=== PATIENT | female | born 1995 | race Caucasian/White ===

== ENCOUNTER → 2018-08-28 13:30 | Outpatient (CLI) | payer SELFPAY | PROVIDERS: Visit Provider Obstetrics & Gynecology | DX: Z36.85 Encounter for antenatal screening for Streptococcus B (principal) | CPT/HCPCS: 87081 ==

== ENCOUNTER 2018-09-30 03:20 | Outpatient (CLI) | payer SELFPAY ==
[2018-09-30 04:02] VITALS: BMI 30.7
[2018-09-30 04:28] LABS: Bacteria 0 SEEN /hpf (None Seen); Mucous, Urine 0 SEEN /hpf (<or=2+)
[2018-09-30 04:41] LABS: Color, Urine Straw (Yellow); Glucose, Dipstick Normal (Normal); Ketone-Dipstick Negative (Negative); Leukocyte Esterase-Dipstick 25 /ul (Negative); Nitrite-Dipstick Negative (Negative); Occult Blood-Urine 250 /ul (Negative); Protein-Dipstick Negative (Negative); Specific Gravity, Urine 1.015 (1.002-1.030); Urine Bilirubin Dipstick Negative (Negative); Urine Clarity Clear (Clear); Urine Urobilinogen Normal (Normal)
[2018-09-30 04:49] LABS: White Blood Cells 0-5 SEEN /hpf (0-5)
[2018-09-30 04:51] LABS: Red Blood Cells-Urine 5-10 SEEN /hpf (0-5); Squamous Epithelial Cells - UA 0-5 SEEN /hpf (5-10)
--- NOTE | 2018-09-30 12:04 | OB.TRI.HP_ITS ---
History of Present Illness Date of Service: 09/30/18 Was patient seen by the physician?: Yes Reason For Visit: R/O LABOR Date of Service: 09/30/18 Final MERVIN: 09/26/18 Final MERVIN Source: US >20 weeks Gestational age: 40 Weeks and 4 Days History of Present Illness: [age]yo [id number] female at 40 3/7 wk with h/o prior C/S for breech. Hoping for . presents with irregular UCs. Able to sleep through these at observation. Allergies No Known Allergies Allergy (Verified 09/30/18 04:04) Laboratory Studies: Laboratory Tests 09/30/18 Range/Units 04:00 Urine Color Straw (Yellow) Urine Clarity Clear (Clear) Urine pH 7.0 (5.0 - 8.0) Ur Specific [place] 1.015 (1.002-1.030) Urine Protein Negative (Negative) mg/dl Urine Glucose (UA) Normal (Normal) mg/dl Urine Ketones Negative (Negative) mg/dl Urine Occult Blood 250 H (Negative) /ul Urine Nitrite Negative (Negative) Urine Bilirubin Negative (Negative) mg/dL Urine Urobilinogen Normal (Normal) mg/dl Ur Leukocyte Esterase 25 H (Negative) /ul Urine RBC 5-10 SEEN (0-5) /hpf Urine WBC 0-5 SEEN (0-5) /hpf Ur Squamous Epith Cells 0-5 SEEN (5-10) /hpf Urine Bacteria 0 SEEN (None Seen) /hpf Urine Mucus 0 SEEN (<or=2+) /hpf Physical Exam General: Alert, Oriented x3, Cooperative, No apparent distress HEENT: Atraumatic, EOMI Neurological: Cranial nerves II-XII grossly intact Presentation: Cephalic Cervix Dilation (cm): 1 - cervix thick and posterior, high. Station: -3 Effacement (%): 0 NST - FHR Rate Baby A Baseline: 110-120s avg variability accels to 140s sleep cycles Variability:: Moderate Accelerations:: 15 x 15 Decelerations:: None NST Reactive:: Yes, Appropriate for gestational age FHR Category:: Category I Uterine Activity:: irregular UCs Impression/Plan 40 3/7 wk prior C/S planning False labor NST reassuring RTO for next ofc visit as planned. Plan for induction if 41 wk. UNFAVORABLE cervix for induction at present.
== END 2018-09-30 08:20 | disposition home or self-care (01) ==
LOC: WPOUT 03:49 → WP 03:49
PROVIDERS: Visit Provider Obstetrics & Gynecology
DX: O47.1 False labor at or after 37 completed weeks of gestation (principal); O34.211 Maternal care for low transverse scar from previous cesarean delivery; Z3A.40 40 weeks gestation of pregnancy
CPT/HCPCS: 59025; 59050; 81001; 99218; G0378

== ENCOUNTER 2018-10-05 07:00 | Inpatient (IN) | payer SELFPAY ==
[2018-10-05 08:55] VITALS: BMI 30.7
[2018-10-05] MEDS: Lactated Ringers 1,000 ML 50 ML IV ×3 (15:25→23:30)
[2018-10-05 15:40] LABS: Absolute Lymphocyte Count 1.83 X10^3/ul (0.83-4.51); Absolute Neutrophil Count 6.6 X10^3/uL (2.0-7.7); Basophil# 0.01 X10^3/uL; Basophil% 0.1 % (0-1); Eosinophil# 0.03 X10^3/uL; Eosinophils% 0.3 % (0-5); Hematocrit 32.2 % (37-47); Hemoglobin 10.6 g/dl (12.0-15.0); Lymphocyte # 1.83 X10^3/ul (4.0); Lymphocyte % 20.6 % (19-41); Mean Corp Hgb Conc 32.9 g/gl (32-36); Mean Corpuscular Hgb 28.5 pg (27.0-32.0); Mean Corpuscular Volume 86.6 fL (81-99); Mean Platelet Vol. 9.7 fl (6.2-12.0); Monocyte# 0.37 X10^3/uL; Monocyte% 4.2 % (0-10); Neutrophil # 6.61 X10^3/uL (2.7-7.7); Neutrophil % 74.4 % (47-70); Platelet Count 201 K/mm3 (150-450); Red Blood Count 3.72 M/mm3 (4.2-5.4); White Blood Count 8.9 K/mm3 (4.4-11.0)
[2018-10-05 15:41] LABS: POSITIVE COUNT NO; POSITIVE DIFFERENTIAL NO; POSITIVE MORPHOLOGY NO
[2018-10-05] MEDS: Oxytocin 30 units/NS 500 ml 30 UNITS/500 ML IV.SOLN IV (17:50)
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
--- NOTE | 2018-10-05 21:35 | PCM.PN.BLA ---
Progress Note LABOR PROGRESS NOTE. 41 2/7 wk EGA induction Strong UCs noted per RN notes. AVSS Pitocin at 4 mIU/min EFM 120s with avg variability Some earlies noted . Category I tracing. UCs q 2-3 mins and adequate mVUs by IUPC Cx 3.5/90/-2 at 2106 per RN check.
[2018-10-06] VITALS (18 sets, daily range): BP systolic 92–124; BP diastolic 50–81; PULSE 61–110; RESP 14–22; TEMP 36.3–37.8; O2SAT 94–100
[2018-10-06] MEDS: 0.9% Saline Lock 10 ML Syringe IV (00:28)
[2018-10-06] MEDS: Ondansetron 4 MG/2 ML Vial IV (00:28)
[2018-10-06] MEDS: fentaNYL-bupivacaine (epidural) 100 ML BAG EPIDURAL (00:44)
[2018-10-06] MEDS: Lactated Ringers 1,000 ML 50 ML IV (02:53)
[2018-10-06] MEDS: Amnioinfusion- 0.9% NS 1,000 ML IV.SOLN. 125 ML INTRA-UTER (03:36)
--- NOTE | 2018-10-06 03:44 | PCM.PN.BLA ---
Progress Note LABOR NOTE Epidural placed, comfortable w/ epidural AVSS pitocin at 4 mIU/min EFM 130-140 s avg variability. Early decels then variables with early timing. UCs q 3-4 mins Exam in hands and knees with thick anterior lip. Then returned to supine , with UC cervix approx 8 cm. -1 Scalp lead placed. Scalp stim noted., inc variability noted in FHR 130-140s A/P 41 3/7 wk induction. Amnioinfusion ordered. 300 cc bolus then 125 cc/hr if good fluid return. Position hanges to facilitate rotation and descent.
[2018-10-06] MEDS: CHLORHEXIDINE GLUC 2% CLOTH 1 EACH TOWELETTE TOPICAL (04:40)
--- NOTE | 2018-10-06 04:49 | PN_ITS ---
Progress Note LABOR PROGRESS NOTE Comfortable w/ epidural AVSS Pitocin off Amnioinfusion off O2 on. IFM: recurrent lates noted, and intermittent variables CX: remains 8 cm. A/P: 41 2/7 wk induction postdates . Recurrent lates. Prior recurrent variables. C/S for nonreassuring FHT LINDA. 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 Proceed to C/S
[2018-10-06] MEDS: Sodium Citrate/Citric Acid 30 ML UDC PO (04:50)
[2018-10-06] MEDS: Cefazolin 2 GM in 0.9% Normal Saline 100 ML IV (04:54)
[2018-10-06] MEDS: Oxytocin 30 units/NS 500 ml 30 UNITS/500 ML IV.SOLN 167 UNITS IV (05:17)
--- NOTE | 2018-10-06 05:38 | PCM.OPRPT ---
Report of Operation Date of Procedure: 10/06/18 Pre-Operative Diagnosis: 41 2/7 wk postdates induction Post-Operative Diagnosis: Same and nonreassuring FHT (repetitive lates, deep variables) Surgery/Procedure Performed:: Repeat C/S cider maker: Nicole Gilbert Type of Anesthesia:: General Anesthesiologist: Nubia Ngo Specimen's removed: Placenta Drains: Rodriguez clear yellow urine Delivery Classification: LINDA Final MERVIN: 09/27/18 Gestational age: 41 Weeks and 2 Days doctor who attended delivery (if requested by OB): Yudy Soares Indications: 41 2/7 wk induction postdates, Nonreassuring FHT repetitive lates and deep variables. Indications for : Nonreassuring Status Description of Procedure: Findings: At amniotomy, clear fluid was noted. Uv viable male in vertex presentation. Deeply wedged into maternal pelvis Significant caput, moulding. Apgars 8/8, There was a normal appearing uterus, fallopian tubes and ovaries bilaterally. There was no window noted at the uterus. There were minimal filmy adhesions between the bladder and lower uterine segment. PATH: Routine cord blood for typing collected. Routine cord gases were sent. Narrative account: After the risks, benefits and alternatives of the procedure were reviewed with the patient, informed consent was obtained. The patient was taken to the Operating room with an IV running, rodriguez catheter in place and epidural catheter in place. She was positioned on the table to dorsal supine position with leftward displacement of the uterus, and prepped and draped in the usual sterile fashion. The epidural was dosed to surgical levels, but remained spotty on the R side and inadequate on the L side. Due to this, general anesthesia was administered. Once the general was administered, a Pfannenstiel skin incision was created using the knife (through the prior skin incision scar). The incision was carried down to the rectus fascia using the knife. The fascia was nicked in the midline. The fascial incision was extended bilaterally using curved Villalobos scissors. The superior aspect of the fascial incision was grasped with Desmond clamps and tented up and the underlying rectus abdominal muscles were dissected free. In a similar manner, the inferior aspect of the facial incision was grasped with Desmond clamps tented up and the underlying rectus abdominal muscles were dissected free. The rectus abdominis muscles were in the midline and the peritoneum was identified and entered by blunt dissection high in the incision. The peritoneum was stretched laterally and a bladder blade was inserted. A bladder flap was created along the lower uterine segment with Metzenbaum scissors . The uterine incision was then created using Metzenbaum scissors. The operators fingertips were used to extend the uterine incision by blunt dissection in a caudad- cephalad orientation . Clear fluid was noted at amniotomy. The vertex was then delivered atraumatically through the incision. The OP and nares were bulb suctioned on the abdomen. The shoulders delivered easily . The cord clamped x two and cut. And the infant was handed off to the nurse awaiting delivery. The baby had a very weak cry at handoff. The placenta was then delivered. The uterus was exteriorized and cleared of clots and debris . The uterine incision was repaired with 1 Vicryl in a running locked fashion. A second imbricating layer was then placed, using 1 Monocryl in running nonlocked fashion. Bovie cautery was used to treat any bleeding areas . Excellent hemostasis was noted. At this point the uterus was returned to the abdominal cavity. The pelvis and abdomen were copiously irrigated. The gutters were cleared of clots and debris and the incision at the uterus was inspected. Shavon was dusted over the incision and along a vertical window at the serosal edge of the uterus extending vertically from the L uterine angle. Excellent hemostasis was noted. The peritoneal edges and rectus abdominis muscles were reapproximated in the midline with a series of figure of eight stitches of 1 Vicryl. Shavon was applied to this layer. Excellent hemostasis was noted at the subfascial space Shavon was dusted over this layer as well. The fascia was closed in a running nonlocked fashion with a Stratofix. The Subcutaneous fatty tissue was dry. Shavon was liberally dusted at this layer to prevent seroma formation. This layer was then reapproximated in a single layer closure of running 3-0 Vicryl to eliminate space. The skin edges were closed in a Subcuticular stitch of 4-0 Monocryl. The incision was cleansed. Cavilon, and Mepilex dressing were applied to the skin . The patient was then transferred to the recovery room bed in stable condition after tolerating the procedure well. Sponge, lap, needle and instrument counts correct times two. Medications given preop and intraoperatively included: Ancef 2 gm given food production machine operator to the operating room. The patient also received Pitocin given IV after cord clamp, and Toradol 30 mg IV times one. For a complete listing of medications given preop and intraoperatively, please see the anesthesia record. Amniotic Membrane Rupture Type: Artificial Amniotic Fluid Description: Clear Placenta Disposition: [facility] Specimen(s) sent to pathology: cord gases Drain: Rodriguez to straight drain Fluids Replaced: LR Cord Entanglement: None Cord Vessel Description: 3 Vessels Esitmated Blood Loss (ml): 600 Gender: Male Delayed cord clamping: No Pre-op Antibiotic Given: Ancef 2 grams IV x1 Complications: None - Admit VTE Documentation VTE Present on Admission: No VTE Mechan Device Prophylaxis: SCD's VTE Pharm Prophylaxis ordered?: Yes
--- NOTE | 2018-10-06 05:53 | PCM.DCCSEC ---
Discharge Diet: No Restrictions Discharge Activity: May Shower, May Take a Tub Bath Return to work on:: 11/20/18 May resume sexual activity in: 4-6 weeks Lifting Restrictions: 20 pounds Additional Activity Instructions:: Nothing in the vagina for 4-6 weeks. You may return to work/school in 6 weeks. Change Dressing in (Days):: 7 Remove Dressing in (days):: 7 Cleanse incision/area with: Soap & Water, Keep Dressing Clean & Dry Additional Instructions: If you experience any of the following, contact your healthcare provider. Bleeding that soaks a pad every hour for 2 hours Fever 100.4 or higher Unrelieved incision or abdominal pain Swelling, redness, discharge or bleeding from your incision Problems urinating (including inability to urinate or burning while urinating). Visual changes Severe headache Flu-like symptoms Pain or redness in one of both of your breasts Pain, warmth, tenderness or swelling in your legs, especially the calf area Frequent nausea and vomiting Symptoms of depression or anxiety If you experience any of the following, call 911 or go to the nearest Emergency Room. Chest pain Problems breathing Seizure activity Partial or complete paralysis of a body part, slurred speech, weakness or drooping of the face, or a sudden inability to walk or hold your balance Allergies/Adverse Reactions: Allergies No Known Allergies Allergy (Verified 10/05/18 08:53) Medications to take at Discharge Elena [place]/Linoleic/Gamoleni [Evening [place] 1,000 mg Sftg] 3,000 mg PO QHS 09/30/18 Vits [Prenatabs FA] 3 tablet PO DAILY 09/30/18 Docusate Sodium [Colace] 100 mg PO BID #30 capsule 10/06/18 Naproxen [Naprosyn] 250 - 500 mg PO TID PRN PRN #30 tablet 10/06/18 Oxycodone [Oxyir] 5 - 10 mg PO Q6H PRN PRN 7 Days #20 tablet 10/06/18 Polyethylene Glycol 3350 [Miralax] 17 gm PO DAILY PRN #14 packet 10/06/18 The following prescriptions were given: Oxycodone [Oxyir] 5 - 10 mg PO Q6H PRN PRN 7 Days #20 tablet PRN Reason: Mod-Severe Pain (-10/10) Naproxen [Naprosyn] 250 - 500 mg PO TID PRN PRN #30 tablet PRN Reason: Mild-Mod Pain (1-09/15) Polyethylene Glycol 3350 [Miralax] 17 gm PO DAILY PRN #14 packet PRN Reason: Constipation Docusate Sodium [Colace] 100 mg PO BID #30 capsule Follow-Up: Call to make an appointment with your doctor for an incision check in 1-2 weeks. You will also need a 6 week post- follow up appointment. Test results from this visit will be discussed in further detail at your follow-up appointment, if applicable. Please Follow Up With: Jeana Conway MD - [phone] When: Call to make an appointment for an incision check in 2 weeks. Primary Care Physician: Bryan Mcleod [Primary Care Provider] - Proposed Discharge Date: 10/09/18
--- NOTE | 2018-10-06 05:56 | DCINST_ITS ---
Discharge Diet: No Restrictions Discharge Activity: May Shower, May Take a Tub Bath Return to work on:: 11/20/18 May resume sexual activity in: 4-6 weeks Lifting Restrictions: 20 pounds Additional Activity Instructions:: Nothing in the vagina for 4-6 weeks. You may return to work/school in 6 weeks. Change Dressing in (Days):: 7 Remove Dressing in (days):: 7 Cleanse incision/area with: Soap & Water, Keep Dressing Clean & Dry Additional Instructions: If you experience any of the following, contact your healthcare provider. * Bleeding that soaks a pad every hour for 2 hours * Fever 100.4 or higher * Unrelieved incision or abdominal pain * Swelling, redness, discharge or bleeding from your incision * Problems urinating (including inability to urinate or burning while urinating). * Visual changes * Severe headache * Flu-like symptoms * Pain or redness in one of both of your breasts * Pain, warmth, tenderness or swelling in your legs, especially the calf area * Frequent nausea and vomiting * Symptoms of depression or anxiety If you experience any of the following, call 911 or go to the nearest Emergency Room. * Chest pain * Problems breathing * Seizure activity * Partial or complete paralysis of a body part, slurred speech, weakness or drooping of the face, or a sudden inability to walk or hold your balance Allergies/Adverse Reactions: Allergies No Known Allergies Allergy (Verified 10/05/18 08:53) Medications to take at Discharge Elena [place]/Linoleic/Gamoleni [Evening [place] 1,000 mg Sftg] 3,000 mg PO QHS 09/30/18 Vits [Prenatabs FA] 3 tablet PO DAILY 09/30/18 Docusate Sodium [Colace] 100 mg PO BID #30 capsule 10/06/18 Naproxen [Naprosyn] 250 - 500 mg PO TID PRN PRN #30 tablet 10/06/18 Oxycodone [Oxyir] 5 - 10 mg PO Q6H PRN PRN 7 Days #20 tablet 10/06/18 Polyethylene Glycol 3350 [Miralax] 17 gm PO DAILY PRN #14 packet 10/06/18 The following prescriptions were given: Oxycodone [Oxyir] 5 - 10 mg PO Q6H PRN PRN 7 Days #20 tablet PRN Reason: Mod-Severe Pain (4-02/15) Naproxen [Naprosyn] 250 - 500 mg PO TID PRN PRN #30 tablet PRN Reason: Mild-Mod Pain (1-09/15) Polyethylene Glycol 3350 [Miralax] 17 gm PO DAILY PRN #14 packet PRN Reason: Constipation Docusate Sodium [Colace] 100 mg PO BID #30 capsule Follow-Up: Call to make an appointment with your doctor for an incision check in 1-2 weeks. You will also need a 6 week post- follow up appointment. Test results from this visit will be discussed in further detail at your follow- up appointment, if applicable. Please Follow Up With: Jeana Conway MD - [phone] When: Call to make an appointment for an incision check in 2 weeks. Primary Care Physician: Bryan Mcleod [Primary Care Provider] - Proposed Discharge Date: 10/09/18
[2018-10-06] MEDS: Lactated Ringers 1,000 ML 100 ML IV ×2 (06:00→16:37)
[2018-10-06] MEDS: Ketorolac 30 MG/ML Syringe IV ×4 (06:50→23:33)
[2018-10-06] MEDS: Acetaminophen 500 MG Tablet 1000 MG PO ×2 (09:20→16:36)
[2018-10-06] MEDS: HYDROmorphone 1 MG/ML Syringe IV ×2 (17:54→21:18)
[2018-10-07] MEDS: Acetaminophen 500 MG Tablet 1000 MG PO ×2 (02:53→17:07)
[2018-10-07 04:57] VITALS: BP 109/86; PULSE 83; RESP 18; TEMP 36
[2018-10-07] MEDS: Ketorolac 30 MG/ML Syringe IV ×4 (05:18→23:53)
[2018-10-07] MEDS: 0.9% Saline Lock 10 ML Syringe IV ×4 (05:18→23:53)
[2018-10-07] MEDS: Enoxaparin 40 MG/0.4 ML Syringe SC (05:19)
[2018-10-07 05:49] LABS: Hematocrit 30.4 % (37-47); Hemoglobin 10.1 g/dl (12.0-15.0); Mean Corp Hgb Conc 33.2 g/gl (32-36); Mean Corpuscular Hgb 28.8 pg (27.0-32.0); Mean Corpuscular Volume 86.6 fL (81-99); Mean Platelet Vol. 9.8 fl (6.2-12.0); Platelet Count 176 K/mm3 (150-450); RBC Distribution Width CV 14.1 % (11.6-14.6); RBC Distribution Width SD 43.1 fl (35.1-43.9); Red Blood Count 3.51 M/mm3 (4.2-5.4); White Blood Count 15.6 K/mm3 (4.4-11.0)
[2018-10-07 05:52] LABS: Scan Indicated on CBC? Y/N NO
[2018-10-07 08:00] VITALS: BP 117/72; PULSE 62; RESP 18; TEMP 36.7; O2SAT 96
[2018-10-07] MEDS: Senna/Docusate Sodium 1 Tablet PO (08:05)
[2018-10-07] MEDS: oxyCODONE 5 MG Tablet PO (08:05)
--- NOTE | 2018-10-07 10:22 | PCM.PN.OB ---
Subjective: Patient without complaints. Tolerating diet well. Denies flatus. Minimal vaginal bleeding reported. - Physical Exam Vital Signs Temp Pulse Resp BP Pulse Ox 98.1 F 62 18 117/72 96 10/07/18 08:00 10/07/18 08:00 10/07/18 08:00 10/07/18 08:00 10/07/18 08:00 Oxygen Delivery Method Room Air Weight: 179 lb 3.773 oz Body Mass Index (BMI) 30.7 Intake and Output for Last 24 Hours 10/05/18 10/06/18 10/07/18 23:59 23:59 23:59 Intake Total 4453 / 4453 325 / 325 Output Total 3050 / 3050 1100 / 1100 Balance 1403 / 1403 -775 / -775 Laboratory Tests Past 24 Hrs 10/07/18 05:30 WBC 15.6 H RBC 3.51 L Hgb 10.1 L Hct 30.4 L MCV 86.6 MCH 28.8 MCHC 33.2 RDW 14.1 RDW Differential 43.1 Plt Count 176 MPV 9.8 Wound is clean and dry covered with Mepilex bandage. Good urine output. Hemoglobin okay. Medical Necessity - Tobacco Use Smoking Status: Never smoker Assessment/Plan Doing well postoperative day #1 status post repeat . Continuing present care.
--- NOTE | 2018-10-07 12:30 | NURSING ---
Report given to Shaye Lunsford RN. She will assume care of patient at this time.
[2018-10-07 14:28] VITALS: BP 105/56; PULSE 76; RESP 16; TEMP 36.7
[2018-10-07 20:17] VITALS: BP 116/72; PULSE 75; RESP 18; TEMP 36.9
[2018-10-08 02:14] VITALS: BP 109/70; PULSE 88; RESP 16; TEMP 36.4
[2018-10-08] MEDS: Enoxaparin 40 MG/0.4 ML Syringe SC (05:44)
[2018-10-08 07:51] VITALS: BP 119/84; PULSE 64; RESP 18; TEMP 36.7; O2SAT 96
[2018-10-08] MEDS: oxyCODONE 5 MG Tablet PO (08:12)
--- NOTE | 2018-10-08 09:52 | PCM.PN.OB ---
Subjective: Patient without complaints. Tolerating diet well. Pain well controlled. Ready to go home. - Physical Exam Vital Signs Temp Pulse Resp BP Pulse Ox 98.1 F 64 18 119/84 H 96 10/08/18 07:51 10/08/18 07:51 10/08/18 07:51 10/08/18 07:51 10/08/18 07:51 Oxygen Delivery Method Room Air Weight: 179 lb 3.773 oz Body Mass Index (BMI) 30.7 Intake and Output for Last 24 Hours 10/06/18 10/07/18 10/08/18 23:59 23:59 23:59 Intake Total 4453 / 4453 325 / 325 Output Total 3050 / 3050 1600 / 1600 Balance 1403 / 1403 -1275 / -1275 Medical Necessity - Tobacco Use Smoking Status: Never smoker Assessment/Plan Doing well postoperative day #2 status post section. Will release to home with routine instructions.
--- NOTE | 2018-10-08 09:57 | PCM.DC.BLA ---
Discharge Summary Date of Admission: 10/05/18 Date of Discharge: 10/08/18 Summary: Procedure: Repeat HPI: Uneventful care. PE: Unremarkable. Hospital Course: The patient is a 23 year old who presented to [facility] for repeat . Postoperatively she did well demonstrating a stable HGB on POD 1 and bowel fxn by POD 2 at which time it was felt she was ready for discharge. Homegoing Instruction: She was instructed not to drive for several days or if using narcotic pain medication, not to put anything in the vagina for 4 weeks, not to lift >25 lbs for 6 weeks and to call the office for an appointment in 2 weeks and 6 weeks. Discharge Medications: She was given a prescription for Oxycodone and Colace and also plans to use Aleve or Motrin or Tylenol at home as needed for pain and constipation. - Physical Exam Vital Signs Temp Pulse Resp BP Pulse Ox 98.1 F 64 18 119/84 H 96 10/08/18 07:51 10/08/18 07:51 10/08/18 07:51 10/08/18 07:51 10/08/18 07:51 Oxygen Delivery Method Room Air Weight: 179 lb 3.773 oz Body Mass Index (BMI) 30.7 Intake and Output for Last 24 Hours 10/06/18 10/07/18 10/08/18 23:59 23:59 23:59 Intake Total 4453 / 4453 325 / 325 Output Total 3050 / 3050 1600 / 1600 Balance 1403 / 1403 -1275 / -1275
== END 2018-10-08 12:00 | disposition home or self-care (01) | DRG 788 ==
PROVIDERS: Admitting Provider Obstetrics & Gynecology; Family Provider Family Medicine; PCP Family Medicine; Referring Provider Obstetrics & Gynecology; Visit Provider Obstetrics & Gynecology
DX: O76 Abnormality in fetal heart rate and rhythm complicating labor and delivery (principal); O65.5 Obstructed labor due to abnormality of maternal pelvic organs; O34.219 Maternal care for unspecified type scar from previous cesarean delivery; O48.0 Post-term pregnancy; Z37.0 Single live birth; Z3A.41 41 weeks gestation of pregnancy
CPT/HCPCS: 59025; 59050; 85025; 85027; 86850; 86900; 99218; J7030; J7120; A4216; G0378; J2405; J3490